=== PATIENT | male | born 1985 | race Two or more races ===

== ENCOUNTER 2025-05-12 09:01 | Emergency (ER) | payer BC ==
[2025-05-12] MEDS: Diphtheria,Pertussis(Acell),Tetanus Vaccine 0.5 ML Syringe IM ONE (11:39)
[2025-05-12] MEDS: cefTRIAXone 1 GM in Lidocaine 1% 2.1 ML IM ONE (12:55)
== END 2025-05-12 13:04 | disposition home or self-care (01) ==
LOC: MW.ED 09:01
DX: S62.634B Displaced fracture of distal phalanx of right ring finger, initial encounter for open fracture (principal); Z75.3 Unavailability and inaccessibility of health-care facilities; W45.8XXA Other foreign body or object entering through skin, initial encounter; Z23 Encounter for immunization
CPT/HCPCS: 73140; 90471; 90715; 96372; 99283; J0696; J2003